=== PATIENT | female | born 1980 | race Caucasian/White ===

== ENCOUNTER 2017-04-21 08:31 | Emergency (ER) | payer OTHER ==
[~2017-04-21] VITALS: Ht 162.6 cm; Wt 70.5 kg
[2017-04-21 08:32] VITALS: BP 125/86; PULSE 81; RESP 16; TEMP 97.7; O2SAT 99
[2017-04-21] MEDS ORDERED: ACETAMINOPHEN 500 MG CPLT PO ONE (09:45)
[2017-04-21] MEDS ORDERED: IOHEXOL 350 MG/ML 10 ML VIAL (for RAD DIAG) IVCONTRAST ONE (10:33)
--- NOTE | 2017-04-21 10:43 | RADRPT ---
EXAM DATE/TIME: 04/21/2017 10:12 [place] COMPARISON: No previous studies available for comparison. INDICATIONS : Left eyelid swelling and redness IV CONTRAST: 67 cc Omnipaque 350 (iohexol) IV RADIATION DOSE: 36.81 CTDIvol (mGy) MEDICAL HISTORY : None SURGICAL HISTORY : None. ENCOUNTER: Initial ACUITY: 4 - 6 days PAIN SCALE: 6/10 LOCATION: Left facial TECHNIQUE: Volumetric scanning of the facial bones was performed. Using automated exposure control and adjustme nt of the mA and/or kV according to patient size, radiation dose was kept as low as reasonably achiev able to obtain optimal diagnostic quality images. DICOM format image data is available electronicall y for review and comparison. FINDINGS: ORBITS: The orbital and infraorbital osseous structures are intact. The retroconal structures have a normal configuration. No radiopaque foreign bodies are seen. NASAL BONE: The nasal bone and maxillary spine are intact ZYGOMATIC ARCHES: Symmetric without evidence of fracture. SINUSES: The ethmoid and frontal sinuses are intact. No air-fluid levels seen. Mucosal thickening in the maxi llary sinuses. NASAL CAVITY: The nasal septum is intact and midline. The lacrimal ducts are intact. SOFT TISSUES: No radiopaque foreign bodies seen. Left-sided periorbital soft-tissue swelling is seen. INTRACRANIAL: No intracranial air seen. CRIBIFORM PLATE: Grossly intact. CONCLUSION: 1. Left-sided periorbital cellulitis. No post septal involvement. 2. Scattered sinus disease. Valente Hunt MD on April 21, 2017 at 10:40 Board Certified Radiologist. This report was verified electronically.
--- NOTE | 2017-04-21 10:51 | PD ---
HPI Chief Complaint: Skin Problem Time Seen by Provider: 09:26 Travel History International Travel<30 days: No Contact w/Intl Traveler<30days: No Traveled to known affect area: No History of Present Illness HPI This is a 36-year-old female who presents to the emergency department with 3 days of swelling around her left eye, constant, moderate severity associated with a pimple-like structure on her left eyebrow. She was prescribed clindamycin which she's taken for 2 days but it's not improving. She also has been applying warm compresses and someone unroofed the area yesterday but he continues to worsen so she came to the emergency department. She denies any fevers or chills. She does have some pain when she moves her eyes. She has no history of diabetes and no history of IV drug use. PFSH Past Medical History ?: Not Social History Alcohol Use: No Tobacco Use: No Substance Use: No Allergies-Medications (Allergen,Severity, Reaction): Coded Allergies: Penicillins (Verified Allergy, Intermediate, rash, 04/21/17) Reported Meds & Prescriptions Reported Meds & Active Scripts Active No Active Prescriptions or Reported Medications Review of Systems Except as stated in HPI: all other systems reviewed are Neg Physical Exam Narrative GENERAL:Well appearing, no acute distress SKIN: 1 cm area of fluctuance and scabbing in the left eyebrow. HEAD: Atraumatic. Normocephalic. EYES: Pupils equal and round. No injection or drainage. Edema and swelling around the left eye. ENT: Moist mucous membranes NECK: Trachea midline. CARDIOVASCULAR: Regular rate and rhythm. No murmur appreciated. RESPIRATORY: Clear to auscultation. Breath sounds equal bilaterally. GASTROINTESTINAL: Abdomen soft, non-tender, nondistended. MUSCULOSKELETAL: No obvious deformities. NEUROLOGICAL: Awake and alert. No obvious cranial nerve deficits. Moving all extremities. PSYCHIATRIC: Appropriate mood and affect; insight and judgment normal. Data Data Last Documented VS Vital Signs Date Time Temp Pulse Resp B/P (MAP) Pulse Ox O2 Delivery O2 Flow Rate FiO2 04/21/17 08:32 97.7 81 16 125/86 (99) 99 Room Air Orders Orders Complete Blood Count With Diff (04/21/17 09:36) Basic Metabolic Panel (Bmp) (04/21/17 09:36) ^ Insert Iv (04/21/17 09:36) Ct Facial Bones W Iv Contrast (04/21/17 ) Ed Urine Pregnancytest Poc (04/21/17 09:36) Acetaminophen (Tylenol) (04/21/17 09:45) Iohexol 350 Inj (Omnipaque 350 Inj) (04/21/17 10:33) MDM Medical Decision Making Medical Screen Exam Complete: Yes Emergency Medical Condition: Yes Interpretation(s) Afebrile, no tachycardia, normotensive Differential Diagnosis Preseptal cellulitis, orbital cellulitis, abscess Narrative Course This is a 36-year-old female who presents to the emergency department with cellulitis involving the left eye. She has an area in the left eyebrow which appears to be a small abscess which is 1-2 cm at most. I took an 18-gauge needle and unroofed the abscess and obtained a scant amount of drainage which I sent for culture. CT was obtained to rule out orbital cellulitis which was reassuring. I think clindamycin is an appropriate medication for this patient. I think she should continue to apply warm compresses to the area to allow it to drain. She should return to the emergency department if her symptoms are worsening. Diagnosis Primary Impression: Preseptal cellulitis Patient Instructions: General Instructions Additional Instructions: If you develop fever, increasing redness, warmth, or spreading of your infection , or severe pain return to the emergency department immediately as you may require antibiotics through your IV. Apply a warm washcloth four times daily for 15 minutes at a time. Complete your course of antibiotics as prescribed. Med/Other Pt SpecificInfo: No Change to Meds Scripts No Active Prescriptions or Reported Meds Disposition: 01 DISCHARGE HOME Condition: Stable Amy Castro MD Apr 21, 2017 10:51
[2017-04-21 10:53] LABS: BASOPHIL % 0.2 % (0.0-2.0); EOSINOPHIL # 0.2 TH/MM3 (0-0.4); EOSINOPHIL % 1.3 % (0.0-4.0); HEMATOCRIT 41.5 % (35.0-46.0); HEMOGLOBIN 14.3 GM/DL (11.6-15.3); LYMPHOCYTE # 2.3 TH/MM3 (1.0-4.8); MEAN CORPUSCULAR HEMOGLOBIN 32.7 PG (27.0-34.0); MEAN CORPUSCULAR HGB CONC 34.4 % (32.0-36.0); MONO % 5.2 % (0.0-8.0); MONOCYTE # 0.6 TH/MM3 (0-0.9); NEUT % 74.3 % (16.0-70.0); PLATELET COUNT 233 TH/MM3 (150-450); RED BLOOD COUNT 4.37 MIL/MM3 (4.00-5.30); WHITE BLOOD COUNT 12.1 TH/MM3 (4.0-11.0)
[2017-04-21 11:13] LABS: BICARBONATE 29.1 MEQ/L (21.0-32.0); CALCIUM 8.9 MG/DL (8.5-10.1); CREATININE 0.6 MG/DL (0.50-1.00)
[2017-04-21] MEDS ORDERED: CLIN150C14 PO (11:28)
== END 2017-04-21 11:36 | disposition home or self-care (01) ==
LOC: NEPD 08:31
DX: L03.213 Periorbital cellulitis (principal); A49.02 Methicillin resistant Staphylococcus aureus infection, unspecified site; Z88.0 Allergy status to penicillin
CPT/HCPCS: 10140; 70487; 80048; 84703; 85025; 86403; 87070; 87186; 99284; Q9967